=== PATIENT | male | born 1990 | race Hispanic/Latino ===

== ENCOUNTER 2022-05-30 06:52 | Day surgery (SDC) | payer BC ==
[2022-05-24 08:45] LABS: Absolute Lymphocytes (CBC) 2.6 K/uL (0.7-4.9); Lymphocytes % 35.3 % (15.3-44.8); MPV 7.5 fL (7.6-11.3); RBC Red Blood Cell Count 5.37 M/uL (4.33-5.43)
[2022-05-24 08:52] LABS: Potassium 4.3 mmol/L (3.5-5.1)
[2022-05-29 12:44] LABS: SARS-CoV-2 Antigen Rapid Res Negative (Negative)
[2022-05-30] MEDS ORDERED: CEFAZOLIN SODIUM 1 GM/VIAL ONE (07:10)
[2022-05-30] MEDS ORDERED: Ringers Lactate 1,000 ML IV ONE (07:10)
[2022-05-30] MEDS ORDERED: ACETAMINOPHEN 500 MG TAB ONE (07:33)
[2022-05-30] MEDS ORDERED: CELECOXIB 100 MG CAPSULE ONE (07:33)
[2022-05-30] MEDS ORDERED: MIDAZOLAM HCL 2 MG/2 ML INJ ONE (08:27)
[2022-05-30] MEDS ORDERED: LIDOCAINE 1% MPF 5 ML VIAL ONE (08:27)
[2022-05-30] MEDS ORDERED: propofoL 200 MG/20 ML VIAL IV ONE (08:27)
[2022-05-30] MEDS ORDERED: FENTANYL CITR 100 MCG/2 ML ONE ×2 (08:27→09:59)
[2022-05-30] MEDS ORDERED: ROCURONIUM 50 MG/5 ML VIAL IV ONE (08:27)
[2022-05-30] MEDS ORDERED: NS 0.9% VIAL 10 ML ONE (08:50)
[2022-05-30] MEDS ORDERED: KETOROLAC 30 MG/ML INJ ONE (09:09)
[2022-05-30] MEDS ORDERED: dexAMETHasone 10 MG/ML VIAL ONE (09:09)
[2022-05-30] MEDS ORDERED: ONDANSETRON 4 MG/2 ML VIAL ONE (09:18)
[2022-05-30] MEDS ORDERED: NEOSTIGMINE 1 MG/ML -10 ML VIAL ONE (09:19)
[2022-05-30] MEDS ORDERED: GLYCOPYRROLATE 0.2 MG/ML SYR ONE (09:20)
[2022-05-30] MEDS ORDERED: Mastisol Adhesive Liq ONE (09:43)
--- NOTE | 2022-05-30 10:25 | P.OP ---
Date of Service: 05/30/22 Findings and Operative Technique
[2022-05-30] MEDS ORDERED: HYDROMORPHONE HCL 1 MG/ML INJ ONE (10:39)
[2022-05-30 11:44] VITALS: BP 111/76; TEMP 96.9; O2SAT 97
--- NOTE | 2022-05-31 06:57 | P.OP ---
Date of Service: 05/30/22 Preop diagnosis: Incarcerated umbilical hernia Postop diagnosis: Same Procedure performed: Laparoscopic repair of incarcerated umbilical hernia Surgeon: Enzo Estrada MD Director Physical: Dougie ge LICENSED MASSAGE THERAPIST Estimated blood loss: Minimal Specimen: Hernia sac Findings: As above Anesthesia: General Complications: None Drains: None Fluids and blood products: Nonapplicable Disposition: Recovery room Operative note: Patient brought to the OR and placed in the supine position. General anesthesia begun. Patient prepped and draped in the usual sterile fashion. Marcaine 0.5% infiltrated locally. 15 blade used to make a 1 cm left upper quadrant incision. Subcutaneous tissue divided and fascia identified and divided. #1 Vicryl stay suture placed. Peritoneal cavity entered with sharp and blunt dissection. 12 mm trocar placed into the peritoneal cavity under direct vision. Pneumoperitoneum established and then a 5 mm trocar placed in the left lower quadrant. Laparoscopy revealed incarcerated umbilical hernia with preperitoneal fat in it. Subsequently, a 3 cm midline incision was made over the umbilicus. Subcutaneous tissue divided. Hernia sac and contents identified and excised. A 2 cm defect remained. #1 PDS [id number] suture used to close this defect. Then the Bard balloon system mesh deployed in the standard fashion. Complete coverage of the hernia defect with at least 3 to 4 cm borders on each side accomplished. Sorbitack device used to secure the mesh to the peritoneal surface. There was no evidence of any bleeding or bowel injury appreciated. All trochars removed under direct vision. Stay sutures tied to each other to reapproximate the fascial defect. Subcutaneous wounds irrigated and bleeding controlled with cautery. 3-0 chromic used to approximate subcutaneous tissue and close skin. Sterile dressing applied and patient awakened. Patient taken to recovery room in good general condition. CC:
== END 2022-05-30 11:50 | disposition home or self-care (01) ==
LOC: OR 06:52
PROVIDERS: ATTEND Surgery
PROC: 0WUF4JZ Supplement Abdominal Wall with Synthetic Substitute, Percutaneous Endoscopic Approach (ICD-10-PCS; principal; 2022-05-30 09:00)
DX: K42.0 Umbilical hernia with obstruction, without gangrene (principal); Z20.822 Contact with and (suspected) exposure to COVID-19
CPT/HCPCS: 85025; 80048; 36415 ×2; 88302; 87811; 49653; J2704; J2710; J2250; J3010 ×2; J1100; J1170; J7120; J2405; J0690; C1781

== ENCOUNTER 2022-08-29 07:59 | Day surgery (SDC) | payer BC ==
[2022-08-27 09:36] LABS: SARS-CoV-2 Antigen Rapid Res Negative (Negative)
[2022-08-29] MEDS ORDERED: NA CHLORIDE 0.9% 50 ML ONE (08:22)
[2022-08-29] MEDS ORDERED: CEFAZOLIN SODIUM 1 GM/VIAL ONE (08:22)
[2022-08-29] MEDS ORDERED: Ringers Lactate 1,000 ML IV ONE (08:22)
[2022-08-29] MEDS ORDERED: BUPIVACAINE 0.5% PF 10 ML VIAL ONE (10:02)
[2022-08-29] MEDS ORDERED: propofoL 200 MG/20 ML VIAL IV ONE (10:38)
[2022-08-29] MEDS ORDERED: KETOROLAC 30 MG/ML INJ ONE (10:39)
[2022-08-29] MEDS ORDERED: dexAMETHasone 10 MG/ML VIAL ONE (10:39)
[2022-08-29] MEDS ORDERED: FENTANYL CITR 100 MCG/2 ML ONE (10:39)
[2022-08-29] MEDS ORDERED: LIDOCAINE 2% MPF 5 ML VIAL ONE (10:39)
[2022-08-29] MEDS ORDERED: MIDAZOLAM HCL 2 MG/2 ML INJ ONE (10:39)
[2022-08-29] MEDS ORDERED: BUPIVACAINE 0.5% PF 10 ML VIAL SQ ONE (11:10)
[2022-08-29] MEDS ORDERED: HYDROCODONE/APAP 7.5/325 MG TAB PO PRN (11:18)
--- NOTE | 2022-08-29 11:18 | P.OP ---
Date of Service: 08/29/22 Preop diagnosis: Scrotal mass Postop diagnosis: Same Procedure performed: Wide excision scrotal mass 4 x 2 cm with layered closure Surgeon: Enzo Estrada MD Special Effects Artist: None Estimated blood loss: Minimal Specimen: Scrotal mass Findings: As above Anesthesia: General Complications: None Drains: None Fluids and blood products: Nonapplicable Disposition: Recovery room Operative note: Patient brought to the OR and placed in the supine position. General anesthesia begun. Patient prepped and draped in usual sterile fashion. Marcaine 0.5% was locally infiltrated for postop pain control. Then 15 blade used to make a 4 x 2 cm incision on the anterior midline of the scrotal sac around a 1.5 cm raised cyst that was present. Entire cyst excised and sent to pathology as specimen. Wound irrigated and bleeding controlled with cautery. 4-0 chromic used to close the subcutaneous tissue as well as the skin. Sterile dressing applied. Patient awakened and taken to recovery room in good general condition. CC: Dr. Covarrubias's office
[2022-08-29 13:01] VITALS: BP 117/83; TEMP 96.6; O2SAT 98
== END 2022-08-29 12:40 | disposition home or self-care (01) ==
LOC: OR 07:59
PROVIDERS: ATTEND Surgery
PROC: 0VB50ZZ Excision of Scrotum, Open Approach (ICD-10-PCS; principal; 2022-08-29 10:00)
DX: L72.0 Epidermal cyst (principal); Z20.822 Contact with and (suspected) exposure to COVID-19
CPT/HCPCS: 36415; 88304; 87811; 11424; J2704; J2001; J2250; J3010; J1100; J7120; J0690; 88305